=== PATIENT | male | born 1965 | race Caucasian/White ===

== ENCOUNTER → 2022-04-16 08:50 | Outpatient (BNVA) | payer MEDICARE, SELFPAY | PROVIDERS: Visit Provider Nurse Practitioner Family | DX: M54.9 Dorsalgia, unspecified (principal); M79.7 Fibromyalgia; Z87.19 Personal history of other diseases of the digestive system; Z98.890 Other specified postprocedural states; G62.9 Polyneuropathy, unspecified; M25.519 Pain in unspecified shoulder; G47.00 Insomnia, unspecified; Z87.891 Personal history of nicotine dependence | CPT/HCPCS: 80053; 85025 ==

== ENCOUNTER → 2022-07-02 08:34 | Outpatient (BNVA) | payer MEDICARE, SELFPAY | PROVIDERS: PCP Nurse Practitioner Family; Visit Provider Nurse Practitioner Family | DX: R42 Dizziness and giddiness (principal); M54.9 Dorsalgia, unspecified; G89.29 Other chronic pain | CPT/HCPCS: 80053; 85025 ==

== ENCOUNTER 2022-08-24 13:29 | Outpatient (CLI) | payer MEDICARE, SELFPAY ==
--- NOTE | 2022-08-24 13:45 | MR_ITS ---
WS: [id number] MRI BRAIN WITHOUT CONTRAST HISTORY: R42 - Dizziness and giddiness COMPARISON: None available. TECHNIQUE: Diffusion imaging, multiplanar T1, T2 and FLAIR imaging obtained. No acute infarct or hemorrhage. Diffusion sequences normal. There are numerous bilateral small subcen timeter T2 and FLAIR signal hyperintensities in the subcortical white matter. Predominantly in the fr ontal and parietal lobes but also a few in the temporal lobes. No large territory infarct. No edema o r mass effect. Ventricles and extra-axial spaces are normal. No inferior displacement of cerebellar tonsils. The sella turcica and pituitary gland are unremarkabl e. Dural venous sinuses and [place] of [place] demonstrate no abnormality on this unenhanced studies. Paranasal sinuses: Clear. Mastoid air cells: Normal. Calvarium and scalp: Intact. MR/MR head wo con* [id number] IMPRESSION: 1. No acute infarct or hemorrhage. 2. Numerous T2 and FLAIR signal hyperintensities in the subcortical white jean claude er. Probably more than expected for a patient of this age. Differential include s small vessel ischemic disease, hypertension, smoking, diabetes and migraines.
== END 2022-08-24 13:30 | disposition home or self-care (01) ==
PROVIDERS: PCP Nurse Practitioner Family; Visit Provider Nurse Practitioner Family
DX: R42 Dizziness and giddiness (principal); R90.89 Other abnormal findings on diagnostic imaging of central nervous system
CPT/HCPCS: 70551

== ENCOUNTER 2022-11-12 10:18 | Outpatient (CLI) | payer MEDICARE, SELFPAY ==
--- NOTE | 2022-11-12 10:15 | USCV_ITS ---
Nigel Gomez Age: 57 Gender: M : 1965 Exam Date: 11/12/2022 11:02 Ordering Phys: Angelita AlejandroP Technologist: Kevin Cuellar Exam Location: [facility] [place] Indication: dizziness and guidiness Risk Factors: Previous Vascular Surgery: Right Brachial BP: / Left Brachial BP: / Right Left Velocity (cm/s) Spectral Plaque Velocity (cm/s) Spectral Plaque Syst/Diast Broadening Syst/Diast Broadening 84.60/ 13.50 Prox CCA 107.00/ 33.70 97.10/ 19.20 Mid CCA 98.60 / 22.30 64.40/ 13.50 Distal CCA 77.70 / 17.90 57.90/ 25.20 Prox ICA 63.60 / 28.80 73.30/ 28.60 Mid ICA 87.80 / 31.80 45.80/ 19.00 Distal ICA 53.00 / 19.20 78.80 ECA 98.70 0.76 ICA/CCA 0.89 Antegrade Vertebral Antegrade 36.90/ 14.20 cm/s 51.90/ 20.40 cm/s Tri Subclavian Tri 75.80 94.80 FINDINGS Comparison: none available. No significant elevation of systolic or diastolic velocities. Waveforms are normal. No significant amount of calcified plaque or intimal thickening identified. Antegrade vertebral arteries. CONCLUSIONS Normal carotid doppler ultrasound. Dr. Lexi Gilliland DO (Electronically Signed) Final Date: 12 November 2022 12:12 S
== END 2022-11-12 10:19 | disposition home or self-care (01) ==
PROVIDERS: PCP Nurse Practitioner Family; Visit Provider Nurse Practitioner Family
DX: R42 Dizziness and giddiness (principal)
CPT/HCPCS: 93880

== ENCOUNTER 2023-01-05 10:25 | Outpatient (CLI) | payer MEDICARE, SELFPAY | END 2023-01-05 10:26 | disposition home or self-care (01) | PROVIDERS: PCP Nurse Practitioner Family; Visit Provider Psychiatry & Neurology Neurology | DX: R55 Syncope and collapse (principal); H53.489 Generalized contraction of visual field, unspecified eye; Z87.820 Personal history of traumatic brain injury; H53.9 Unspecified visual disturbance; Z79.899 Other long term (current) drug therapy; M54.2 Cervicalgia; G62.9 Polyneuropathy, unspecified | CPT/HCPCS: 36415; 82306; 82607; 82746; 83735; 83921; 84439; 84443; 84481; 99203 ==

== ENCOUNTER → 2023-01-07 08:00 | Outpatient (BNVA) | payer MEDICARE, SELFPAY | PROVIDERS: PCP Nurse Practitioner Family; Referring Provider Psychiatry & Neurology Neurology; Visit Provider Psychiatry & Neurology Neurology | DX: R55 Syncope and collapse (principal) | CPT/HCPCS: 95813 ==

== ENCOUNTER 2023-01-27 14:53 | Outpatient (CLI) | payer MEDICARE, SELFPAY ==
--- NOTE | 2023-01-27 15:00 | CT_ITS ---
WS: [id number] CT ANGIOGRAM CEREBRAL AND CAROTID ARTERIES HISTORY: R55 - Syncope and collapse TECHNIQUE: CT angiogram is performed of the carotid and cerebral arteries. During arterial injection imaging is obtained from the skull vertex to the aortic arch in 1.0 mm imaging. Coronal and sagittal reformats are submitted. Additional multi planar reformats of the carotid and cerebral arteries are s ubmitted, MIP imaging also reviewed. NASCET criteria utilized. All CT scans at [facility] use at least one of these dose optimization techniques: automated exposure control; mA and/or kV adjustm ent per patient size (includes targeted exams where dose is matched to clinical indication); or itera tive reconstruction. CONTRAST: Omnipaque 350; 100 mL IV. DLP: 1290.10 mGy.cm COMPARISON: MRI head 08/24/2022. Noncontrast CT head is first performed. No acute intracranial hemorrhage. No mass effect. Minimal sma ll vessel ischemic disease. Carotid Angiogram: Right carotid: Common carotid artery: Arises normally from the innominate artery. No significant plaque or stenosis. Internal carotid artery: No plaque or stenosis. External carotid artery: Patent. Left carotid: Common carotid artery: Arises normally from the aorta. No significant plaque or stenosis. Internal carotid artery: Minimal plaque at the bifurcation. No stenosis. External carotid artery: Patent. Right vertebral artery: Unremarkable. Left vertebral artery: Unremarkable. Arises normally from the subclavian artery. Subclavian arteries: No stenosis or significant abnormality. Upper thorax: Motion artifact Thyroid gland: Normal. Osseous structures: Mild cervical spondylosis. CEREBRAL ANGIOGRAM: Intracranial vertebral arteries: Normal with no significant atherosclerosis. Basilar artery: Tortuous distal vertebral and the basilar artery. No stenosis. Intracranial Internal carotid arteries: Minimal calcified plaques of the cavernous sinuses. Small foc al plaque in the supraclinoid carotid arteries with stenosis less than 50%. Middle cerebral arteries: Normal. Anterior cerebral arteries and ACOM: RIGHT A1 segment is patent. There is a central lucency which is probably an arterial fenestration. Posterior cerebral arteries and PCOM's: Normal. Dural venous sinuses are normally enhancing. Mastoid air cells: Normal. Paranasal sinuses: Normal. Calvarium: Normal. IMPRESSION: 1. No cervical carotid artery stenosis. 2. Small amount calcified plaque in the cavernous carotid arteries and supraclinoid carotid arteries . Stenosis less than 50%. 3. RIGHT A1 segment fenestration. 4. No cerebral artery aneurysm or occlusion.
[2023-01-27] MEDS: iohexol 350 mg/mL 500 mL Btl (per mL) IV (15:53)
== END 2023-01-27 14:54 | disposition home or self-care (01) ==
PROVIDERS: PCP Nurse Practitioner Family; Visit Provider Psychiatry & Neurology Neurology
DX: R55 Syncope and collapse (principal); H53.9 Unspecified visual disturbance; M54.2 Cervicalgia; I77.9 Disorder of arteries and arterioles, unspecified
CPT/HCPCS: 70496; 70498; Q9967

== ENCOUNTER → 2023-03-09 15:15 | Outpatient (BNVA) | payer MEDICARE, SELFPAY | PROVIDERS: PCP Nurse Practitioner Family; Visit Provider Podiatrist Foot & Ankle Surgery | DX: M79.672 Pain in left foot; D36.10 Benign neoplasm of peripheral nerves and autonomic nervous system, unspecified | CPT/HCPCS: 73630; 99203 ==

== ENCOUNTER → 2023-03-31 14:52 | Outpatient (BNVA) | payer MEDICARE, SELFPAY | PROVIDERS: PCP Nurse Practitioner Family; Visit Provider Psychiatry & Neurology Neurology | DX: R55 Syncope and collapse (principal); Z87.828 Personal history of other (healed) physical injury and trauma; Z87.891 Personal history of nicotine dependence; R51.9 Headache, unspecified | CPT/HCPCS: 99212 ==

== ENCOUNTER → 2023-04-28 13:31 | Outpatient (BNVA) | payer MEDICARE, SELFPAY | PROVIDERS: PCP Nurse Practitioner Family; Visit Provider Psychiatry & Neurology Neurology | DX: R55 Syncope and collapse (principal) | CPT/HCPCS: 99212 ==

== ENCOUNTER → 2023-12-23 10:28 | Outpatient (BNVA) | payer MEDICARE, SELFPAY | PROVIDERS: PCP Nurse Practitioner Family; Visit Provider Nurse Practitioner Family | DX: I10 Essential (primary) hypertension (principal); R53.83 Other fatigue | CPT/HCPCS: 80048; 82040; 84270; 84403; 84443; 85025 ==

== ENCOUNTER → 2024-01-20 11:54 | Outpatient (BNVA) | payer MEDICARE, SELFPAY | PROVIDERS: PCP Registered Nurse; Visit Provider Nurse Practitioner Family | DX: I10 Essential (primary) hypertension (principal); Z68.34 Body mass index [BMI] 34.0-34.9, adult | CPT/HCPCS: 84403 ==

== ENCOUNTER 2025-02-01 13:38 | Outpatient (CLI) | payer MEDICARE, SELFPAY ==
--- NOTE | 2025-02-01 13:43 | XR_ITS ---
WS: [id number] XR lumbar spine 2-3V* [id number] REASON FOR EXAM: M54.9 - Dorsalgia, unspecified FINDINGS: Normal lumbar spine curvatures. No compression deformity or focal lesion of the lumbar vertebrae. Mild to moderate narrowing of the L5-S1 disc space with mild endplate sclerosis and osteophytosis. Mild osteophytosis in the remainder of the lumbar spine. Mild facet joint arthropathy L4-S1. No spondylolysis. No significant spondylolisthesis. XR/XR lumbar spine 2-3V* [id number] IMPRESSION: Lumbar degenerative spondylosis as above.
== END 2025-02-01 13:39 | disposition home or self-care (01) ==
LOC: LAB 13:40
PROVIDERS: PCP Nurse Practitioner Family; Visit Provider Nurse Practitioner Family
DX: M54.9 Dorsalgia, unspecified (principal); G89.29 Other chronic pain; M48.07 Spinal stenosis, lumbosacral region; M25.78 Osteophyte, vertebrae; M47.817 Spondylosis without myelopathy or radiculopathy, lumbosacral region
CPT/HCPCS: 72100

== ENCOUNTER → 2025-02-13 09:31 | Outpatient (BNVA) | payer MEDICARE, SELFPAY | PROVIDERS: PCP Nurse Practitioner Family; Referring Provider Nurse Practitioner Family; Visit Provider Anesthesiology Pain Medicine | DX: M51.360 Other intervertebral disc degeneration, lumbar region with discogenic back pain only (principal); M47.816 Spondylosis without myelopathy or radiculopathy, lumbar region; M51.16 Intervertebral disc disorders with radiculopathy, lumbar region | CPT/HCPCS: 99204 ==

== ENCOUNTER → 2025-02-26 14:41 | Outpatient (BNVA) | payer MEDICARE, SELFPAY | PROVIDERS: PCP Nurse Practitioner Family; Visit Provider Nurse Practitioner | DX: F03.90 Unspecified dementia, unspecified severity, without behavioral disturbance, psychotic disturbance, mood disturbance, and anxiety (principal); R53.83 Other fatigue | CPT/HCPCS: 99213 ==

== ENCOUNTER 2025-03-20 12:47 | Outpatient (CLI) | payer MEDICARE, SELFPAY ==
--- NOTE | 2025-03-20 13:00 | MR_ITS ---
WS: [id number] MRI BRAIN WITH AND WITHOUT CONTRAST HISTORY: R41.89 - Other symptoms and signs involving cognitive function, short term memory loss. COMPARISON: 08/24/2022 TECHNIQUE: Multiplanar imaging performed through the brain with MultiHance 20 ml's IV. No acute infarcts are seen. Vazquez-white matter differentiation is well preserved. There are several scattered T2 and FLAIR signal hyperintensities throughout the supratentorial subcortical white matter. Similar number and distribution as compared to 08/24/2022. Normal hippocampal formations. Mild cerebral and cerebellar atrophy. No prior large territory infarct. Ventricles and extra-axial spaces are normal. Clivus and pituitary gland are normal. Visualized posterior fossa and brainstem are also normal. Postcontrast images are negative for masses or vascular malformations. Dural venous sinuses are normal. Paranasal sinuses: Well aerated with no significant disease. Mastoid air cells: Normal. Calvarium and scalp: Normal. MR/MR head wo/w con [id number] IMPRESSION: 1. Normal diffusion imaging. No acute infarct. 2. T2 and FLAIR signal hyperintensities in subcortical white matter are stable since 08/24/2022. No large territory infarct. 3. No enhancing mass or vascular malformation. 4. Normal hippocampal formations.
[2025-03-20] MEDS: gadobenate dimeglumine 20 mL vial IV (13:29)
== END 2025-03-20 12:48 | disposition home or self-care (01) ==
LOC: RAD 12:49
PROVIDERS: PCP Nurse Practitioner Family; Visit Provider Nurse Practitioner
DX: R41.89 Other symptoms and signs involving cognitive functions and awareness (principal); R46.89 Other symptoms and signs involving appearance and behavior; R93.0 Abnormal findings on diagnostic imaging of skull and head, not elsewhere classified; G31.89 Other specified degenerative diseases of nervous system
CPT/HCPCS: 70553